=== PATIENT | male | born 1980 | race Caucasian/White ===

== ENCOUNTER 2019-04-11 14:58 | Inpatient (IN) | payer BC, SELFPAY ==
[2019-04-11] VITALS (15 sets, daily range): BP systolic 118–146; BP diastolic 88–99; PULSE 95–130; RESP 16–26; TEMP 36.7–37.4; O2SAT 97–99
--- NOTE | ~2019-04-11 | CT_ITS ---
EXAMINATION: CT BRAIN W/O DATE: 04/11/2019 20:55 INDICATION: Headache and vertigo TECHNIQUE: Computed tomography (CT) of the head was performed without intravenous contrast. The dose- length product was 681.00 mGy-cm. The mA was adjusted according to patient size. Iterative reconstruc tion technique was employed. COMPARISON: CT dated 03/23/2019 FINDINGS: Normal brain parenchymal volume for age. Normal shah-white differentiation. No acute intrac ranial hemorrhage, infarction, mass or mass effect. No ventriculomegaly or midline shift. Midline sagittal images demonstrate a normal corpus callosum, c raniovertebral junction and sella turcica. Basilar cisterns are patent. Paranasal sinuses and mastoids are pneumatized. No depressed skull fractures. IMPRESSION: 1. No acute intracranial abnormality. Reviewed, dictated and finalized at location A. SL[facility] SPECIALIST
[2019-04-11 15:29] LABS: Basophils Percent Auto 0.4 % (0.2-1.2); Eosinophils Percent Auto 0.4 % (0-4.4); Hematocrit 41.3 % (42.0-52.0); Immature Granulocyte Absolute 0.04 K/mm3 (0.00-0.031); Immature Granulocyte Percent A 0.6 % (0-0.5); Lymphocytes Absolute Auto 1.38 K/mm3 (0.9-3.2); Lymphocytes Percent Auto 19.7 % (18.3-44.2); Mean Corpuscular HGB Conc 36.3 g/dl (32-36); Mean Corpuscular Hemoglobin 32.9 pg (26-34); Mean Corpuscular Volume 90.6 fl (80-100); Mean Platelet Volume 9.4 fl (7.4-10.4); Monocytes Absolute Auto 0.6 K/mm3 (0.1-0.6); Neutrophils Percent Auto 70.9 % (45.5-73.1); Platelet Count Result 252 k/mm3 (150-375); Red Blood Count 4.56 M/mm3 (4.6-6.20); Red Cell Distribution Width 12.2 % (11.5-14.5)
[2019-04-11 15:39] LABS: Ethanol 124 mg/dL (<10)
[2019-04-11 15:40] LABS: Alanine Aminotransferase 136 U/L (4-50); Albumin Level 5.3 g/dL (3.5-5.1); Alkaline Phosphatase 103 U/L (38-126); Aspartate Amino Transferase 148 U/L (17-59); Bilirubin,Total 1.5 mg/dL (0.2-1.3); Blood Urea Nitrogen 9 mg/dL (9-20); Calcium 9.8 mg/dL (8.4-10.2); Carbon Dioxide 19 mmol/L (22-30); Chloride 89 mmol/L (98-107); Estimated CRCL calculation 129 ml/min; Estimated Glomerular Filt Rate > 60; Glucose 101 mg/dL (75-110); Potassium 3.5 mmol/L (3.4-5.0); Sodium 131 mmol/L (137-145)
[2019-04-11 15:43] LABS: Add Urine Microscopic? YES; Appearance Urine Clear (Clear); Bilirubin Urine Negative (Negative); Blood Urine Negative (Negative); Color Urine Amber (Yellow); Glucose Urine UA Negative (Negative); Hyaline Casts Urine 50+ /lpf; Ketones Urine Trace mg/dL (Negative); Leukocyte Esterase Ur Negative LEU/UL (Negative); Mucus Urine Few /lpf; Nitrate Urine Negative (Negative); Protein Urine 3+ mg/dL (Negative); Squamous Epithelial Cell Urine Rare /hpf (Few); Urobilinogen Urine Negative mg/dL (<2.0)
[2019-04-11 15:56] LABS: Amphetamine Screen Urine Negative (Negative); Barbiturate Screen Urine Negative (Negative); Benzodiazepines Screen Urine Positive (Negative); Cannabinoid Screen Urine Positive (Negative); Cocaine Screen Urine Negative (Negative); Methadone Screen Urine Negative (Negative); Opiate Screen Urine Negative (Negative); Phencyclidine Screen Urine Negative (Negative)
[2019-04-11 16:10] LABS: Thyroid Stimulating Hormone 0.739 uIU/mL (0.465-4.680)
--- NOTE | 2019-04-11 18:00 | ED.GENADULT ---
HPI - General Adult General Chief complaint: Unspecified <ELIO Gibson Last Filed: 04/11/19 20:52> Stated complaint: ALCOHOL DETOX <Milagros Ford PA-C - Last Filed: 04/11/19 20:52> Time Seen by Provider: 04/11/19 17:57 <Milagros Ford PA-C - Last Filed: 04/11/19 20:52> History of Present Illness HPI narrative: Pt was sent to ED by primary care physician for treatment of alcohol withdrawal. Pt states that is is ready to enter rehab. His last drink was at 1100 today, drink of choice is vodka and he estimates about a fifth/day. He has not been eating. He is complaining of vertigo as well, he was admitted here and evaluated by neurology 03/24, contributed to withdrawal at that time. <Milagros Ford PA-C - Last Filed: 04/11/19 20:52> Onset (ago): year(s) <ELIO Gibson Last Filed: 04/11/19 20:52> Treatments prior to arrival: none <ELIO Gibson Last Filed: 04/11/19 20:52> Related Data Home medications: Home Medications Medication Instructions Recorded Confirmed bupropion HCl 150 mg PO BID 03/01/19 03/20/19 losartan-hydrochlorothiazide 1 tablet PO DAILY 03/01/19 03/20/19 trazodone 50 mg PO HS PRN 03/01/19 03/20/19 omeprazole 40 mg capsule,delayed 40 mg PO DAILY 03/28/19 release amlodipine 04/11/19 <ELIO Gibson Last Filed: 04/11/19 20:52> Allergies/adverse reactions: Allergies Allergy/AdvReac Type Severity Reaction Status Date / Time Penicillins Allergy Unknown Rash Verified 04/11/19 18:11 <ELIO Gibson Last Filed: 04/11/19 20:52> Review of Systems Constitutional: Constitutional: Reports no additional constitutional complaints <ELIO Gibson Last Filed: 04/11/19 20:52> Eyes: Eyes: Reports no additional eye complaints <Milagros Ford PA-C - Last Filed: 04/11/19 20:52> ENT: Reports vertigo <Milagros Ford PA-C Last Filed: 04/11/19 20:52> Cardiovascular: Cardiovascular: Reports no additional cardiovascular complaints <Milagros Ford PA-C - Last Filed: 04/11/19 20:52> Respiratory: Respiratory: Reports no additional respiratory complaints <Milagros Ford PA-C Last Filed: 04/11/19 20:52> Gastrointestinal: Gastrointestinal: Reports no additional gastrointestinal complaints <Milagros Ford PA-C Last Filed: 04/11/19 20:52> Neurologic: Reports tremor(s) (both upper extremities) <Milagros Ford PA-C Last Filed: 04/11/19 20:52> Psychiatric: Psychiatric: Reports no additional psychiatric complaints <Milagros Ford PA-C Last Filed: 04/11/19 20:52> Comments: Pt states he is ready to quit drinking. <Milagros Ford PA-C Last Filed: 04/11/19 20:52> PMF Past Medical History Medical History: Medical History Eczema GERD (gastroesophageal reflux disease) H/O: HTN (hypertension) History of angina Sleep apnea Tobacco dependence Tremor of both hands <Milagros Ford PA-C Last Filed: 04/11/19 20:52> Surgical History Surgical History: Surgical History H/O adenoidectomy Hx of tonsillectomy No history of previous surgery <Milagros Ford PA-C Last Filed: 04/11/19 20:52> Family History Family History: Family History Mother Hypertension Family history of kidney disease Family history of heart disease in male family member before age 55 Family history of allergic disorder Family history of diabetes mellitus in first degree relative Family history of coronary artery disease Father Family history of malignant neoplasm of skin Family history of malignant neoplasm <Milagros Ford PA-C - Last Filed: 04/11/19 20:52> Social History Social History: Social History Smoking status: Current every day smoker Second hand tobacco smo
--- NOTE | 2019-04-11 18:12 | ECG_ITS ---
Measurements Intervals Imogene Rate: 111 P: 50 NH: 171 QRS: 15 QRSD: 77 T: 39 QT: 328 QTc: 447 Interpretive Statements SINUS TACHYCARDIA BASELINE ARTIFACT- I, II, AVR ABNORMAL ECG Electronically Signed On 04-11-2019 19:06:28 STRAIGHTENER AND ALIGNER by Humble Jackson D.O.
--- NOTE | 2019-04-11 18:37 | PC.NURSE ---
This RN called for patient's banana bag
[2019-04-11] MEDS: LORAZEPAM INJ 2 MG/ML VIAL IV PUSH (18:48)
--- NOTE | 2019-04-11 20:10 | PM.IMHP ---
H&P: HPI History of Present Illness Chief complaint: alcohol withdrawl Narrative: This is a 39 year old male who presented to the hospital with a complaint of withdrawal symptoms including anxiety, diaphoresis, tachycardia, shakiness, headache, nausea and vomiting, and dizziness. The patient was referred to the hospital today by his primary care doctor. The patient is known to me from a recent admission earlier this month for alcohol abuse. He was discharged home on a multi-vitamin and states that he felt well for the 1st few days that he was home. He describes that a friend came over and talked him into drinking again. He started out with just 1 or 2 beers and this quickly escalated to him drinking heavily once more. He did suffer a significant fall about a week ago at which time he broke his glasses and sustained head trauma. He does not remember many of the details surrounding this but mentions that since then he has had a severe pounding headache that does not seem to want to go away. He denies any hallucinations tonight. Tonight he also describes having nausea and nonbloody vomiting earlier today although he is tolerating ice chips in the ER tonight. He states that he feels very dizzy. The patient was evaluated emergency room this evening and given 2 mg of IV Ativan. The patient continues to be tachycardic with a heart rate in the 120s with visible tremors, pressured speech, diaphoretic, and anxious. He denies any chest pain, shortness of breath, fevers, chills, abdominal pain, dysuria, hematuria, diarrhea, rectal bleeding. Denies any other recent falls. The patient has verbalized to me that he wants to quit drinking. He also tells me that he realizes he should have checked himself into a detox center when he was discharged home. The patient continues to smoke about 1 pack of cigarettes daily. He also reports to me that he was started on Zoloft and Wellbutrin by his primary care doctor although he has worse anxiety since he started these. The patient denies any other significant symptoms at this time. ER provider has consulted spout liner, Dr. Holt. Review of Systems Review of Systems: All systems reviewed & are unremarkable except as noted in HPI and below PMFSH Past Medical History Medical History Eczema GERD (gastroesophageal reflux disease) H/O: HTN (hypertension) History of angina Sleep apnea Tobacco dependence Tremor of both hands Surgical History Surgical History H/O adenoidectomy Hx of tonsillectomy No history of previous surgery Family History Family History Mother Hypertension Family history of kidney disease Family history of heart disease in male family member before age 55 Family history of allergic disorder Family history of diabetes mellitus in first degree relative Family history of coronary artery disease Father Family history of malignant neoplasm of skin Family history of malignant neoplasm Social History Social History Smoking status: Never smoker Second hand tobacco smoke exposure: No Smoking end date: 03/13/15 Alcohol intake: current Drinks per week: 14 Substance use: never Gender identity (if verbalized by the patient): Male Spiritual care concerns: No Agree to blood products: Yes Meds Home Medications and Allergies Home Medications Medication Instructions Recorded Confirmed Type bupropion HCl 150 mg PO BID 03/01/19 04/11/19 History losartan-hydrochlorothiazide 1 tablet PO DAILY 03/01/19 04/11/19 History trazodone 50 mg PO HS PRN 03/01/19 04/11/19 History amlodipine 10 mg tablet 10 mg PO DAILY #90 tablet 03/15/19 04/11/19 Rx multivitamin with minerals 1 tablet PO DAILY #90 tablet 03/25/19 04/11/19 Rx [Multiple Vitamin-Minerals] omepraz
[2019-04-11 21:01] LABS: INR 0.9
[2019-04-11 21:02] LABS: Magnesium 1.8 mg/dL (1.6-2.3); Partial Thromboplastin Time 28.6 SECONDS (22.3-36.8)
[2019-04-11 21:07] LABS: Beta-Hydroxybutyrate/Acetoacetate 2.99 mmol/L (0.02-0.27)
--- NOTE | 2019-04-11 22:05 | ADMGEN ---
This patient, Scott Wen, was admitted to Intensive Care Unit-2. Patient/family oriented to hospital policies and general routines including ID bracelet, bed and alarms, visiting hours, pain management, procedures, bathroom and other care routines, personal items, smoking policy, room service/diet, and visiting hours. Valuables list has been completed. Information on how to activate the Rapid Response Team has been discussed. Patient/Family are encouraged to report perceived risks to care and to ask questions if they do not understand what they are told or what they should do.
[2019-04-12] VITALS (12 sets, daily range): BP systolic 106–129; BP diastolic 71–96; PULSE 70–82; RESP 15–26; TEMP 36.5–36.8; O2SAT 96–99
[2019-04-12] MEDS: CHLORDIAZEPOXIDE 25 MG CAPSULE PO ×2 (00:19→06:25)
[2019-04-12 00:21] LABS: Glucose Point of Care 99 (65-105)
[2019-04-12] MEDS: DEXTROSE 5%/0.9% SOD CHL 1,000 ML 100 ML IV CONT ×3 (04:24→23:14)
[2019-04-12 04:31] LABS: Basophils Percent Auto 0.6 % (0.2-1.2); Eosinophils Percent Auto 0.4 % (0-4.4); Hematocrit 35.6 % (42.0-52.0); Hemoglobin 12.9 g/dL (14.0-18.0); Immature Granulocyte Absolute 0.02 K/mm3 (0.00-0.031); Immature Granulocyte Percent A 0.4 % (0-0.5); Lymphocytes Absolute Auto 1.32 K/mm3 (0.9-3.2); Lymphocytes Percent Auto 25.5 % (18.3-44.2); Mean Corpuscular HGB Conc 36.2 g/dl (32-36); Mean Corpuscular Hemoglobin 33.2 pg (26-34); Mean Corpuscular Volume 91.5 fl (80-100); Mean Platelet Volume 9.2 fl (7.4-10.4); Monocytes Absolute Auto 0.6 K/mm3 (0.1-0.6); Neutrophils Absolute Auto 3.2 K/mm3 (1.3-6.7); Neutrophils Percent Auto 61.1 % (45.5-73.1); Platelet Count Result 150 k/mm3 (150-375); Red Blood Count 3.89 M/mm3 (4.6-6.20); White Blood Count 5.2 K/mm3 (4.5-10.0)
[2019-04-12 04:44] LABS: Magnesium 2.1 mg/dL (1.6-2.3)
[2019-04-12 04:45] LABS: Alanine Aminotransferase 108 U/L (4-50); Albumin Level 4.3 g/dL (3.5-5.1); Alkaline Phosphatase 65 U/L (38-126); Aspartate Amino Transferase 96 U/L (17-59); Bilirubin,Total 1.7 mg/dL (0.2-1.3); Blood Urea Nitrogen 13 mg/dL (9-20); Calcium 8.8 mg/dL (8.4-10.2); Carbon Dioxide 25 mmol/L (22-30); Chloride 92 mmol/L (98-107); Estimated CRCL calculation 145 ml/min; Estimated Glomerular Filt Rate > 60; Glucose 98 mg/dL (75-110); Potassium 3.5 mmol/L (3.4-5.0); Sodium 132 mmol/L (137-145)
[2019-04-12] MEDS: ACETAMINOPHEN 325 MG TABLET 650 MG PO (06:25)
[2019-04-12] MEDS: AMLODIPINE BESYLATE 5 MG TABLET 10 MG PO (08:09)
[2019-04-12] MEDS: LOSARTAN POTASSIUM 50 MG TABLET PO (08:10)
[2019-04-12] MEDS: SERTRALINE HCL 50 MG TABLET PO (08:11)
[2019-04-12] MEDS: hydroCHLOROthiazide 12.5 MG CAPSULE PO (08:11)
--- NOTE | 2019-04-12 08:14 | PM.IMPN ---
Progress Note: A&P Assessment and Plan (1) Alcohol withdrawal: Qualifiers: Complication of substance-induced condition: with unspecified complication Qualified Code(s): F10.239 - Alcohol dependence with withdrawal, unspecified Code(s): F10.239 - Alcohol dependence with withdrawal, unspecified Status: Acute Assessment and Plan: Remains in ICU on Precedex. Continue CIWA protocol. IV lorazepam available if needed. Will add oral folic acid and thiamine. Discussed with patient seriously pursuing alcohol rehab. Discussed with import coordinator and appreciate input. Telemetry reviewed on 04/12/2019 with sinus rhythm. One time dose IV Toradol being given for headache. (2) Alcoholic hepatitis: Qualifiers: Ascites presence: without ascites Qualified Code(s): K70.10 - Alcoholic hepatitis without ascites Code(s): K70.10 - Alcoholic hepatitis without ascites Status: Acute Assessment and Plan: LFTs remain elevated but improving. GI consulted and appreciate input. Result of alcohol use. Will follow. (3) Alcohol abuse: Code(s): F10.10 - Alcohol abuse, uncomplicated Status: Chronic Assessment and Plan: Chronic problem. Encouraged working on going to rehab. Folic acid and thiamine continued as noted above. Will follow LFTs. (4) Hypertension: Qualifiers: Hypertension type: essential hypertension Qualified Code(s): I10 - Essential (primary) hypertension Code(s): I10 - Essential (primary) hypertension Status: Acute Assessment and Plan: Blood pressure reviewed on 04/12/2019 and stable. Will continue to monitor on home amlodipine, losartan and HCTZ. (5) Metabolic acidosis with increased anion gap and accumulation of organic acids: Code(s): E87.2 - Acidosis Status: Acute Assessment and Plan: Now resolved. Will monitor. (6) Dehydration: Code(s): E86.0 - Dehydration Status: Acute Assessment and Plan: Improved with rehydration. IV fluids stopped. (7) Sinus tachycardia: Code(s): R00.0 - Tachycardia, unspecified Status: Acute Assessment and Plan: Secondary to alcohol withdrawal. Heart rate now controlled on review of telemetry on 04/12/2019. (8) GERD (gastroesophageal reflux disease): Qualifiers: Esophagitis presence: esophagitis presence not specified Qualified Code(s): K21.9 - Gastro-esophageal reflux disease without esophagitis Code(s): K21.9 - Gastro-esophageal reflux disease without esophagitis Status: Chronic Assessment and Plan: Continue PPI. Stable. (9) Tobacco dependence: Code(s): F17.200 - Nicotine dependence, unspecified, uncomplicated Status: Chronic Assessment and Plan: Cessation encouraged. (10) DVT prophylaxis: Code(s): Z29.9 - Encounter for prophylactic measures, unspecified Status: Acute Assessment and Plan: SCDs. Time Spent With Patient Time with patient: 15 - 25 minutes Subjective Date/time seen: 04/12/19 08:14 Interval history: Date of Service: 04/12/2019. Admitted with alcohol withdrawal. No problems overnight. Patient does report vertigo along with ?massive headache? this morning. Also notes some upset stomach with discomfort in chest that he feels is from his GERD. No shortness of breath. Does have tremor. No abdominal pain. Review of Systems Constitutional: Constitutional: Denies chills and Denies fever(s) Eyes: Eyes: Denies blurry vision ENT: Denies nasal congestion and Denies nasal discharge Cardiovascular: Cardiovascular: Denies chest pain Comments: chest discomfort from GERD Respiratory: Respiratory: Denies dyspnea Gastrointestinal: Gastrointestinal: Denies abdominal pain, Reports nausea and Denies vomiting Genitourinary: Genitourinary: Reports no additional male genitourinary complaints Musculoskeletal: Musculoskeletal: Reports no additional
--- NOTE | 2019-04-12 09:39 | WPDCNINT ---
Assessment and Plan Assessment and plan (1) Alcohol withdrawal: Qualifiers: Complication of substance-induced condition: with unspecified complication Qualified Code(s): F10.239 - Alcohol dependence with withdrawal, unspecified Code(s): F10.239 - Alcohol dependence with withdrawal, unspecified Status: Acute Assessment and Plan: patient presented with signs of alcohol withdrawal from his primary care doctor's office. patient with tachycardia, tremors, anxiety - on Precedex infusion, CIWA protocol - p.r.n. Ativan - thiamine and folic acid (2) Alcoholic hepatitis: Qualifiers: Ascites presence: without ascites Qualified Code(s): K70.10 - Alcoholic hepatitis without ascites Code(s): K70.10 - Alcoholic hepatitis without ascites Status: Acute Assessment and Plan: elevated LFTs likely related to alcohol abuse. I did discuss with the patient regarding his transaminitis which could lead to damaging his liver down the line if he did not quit degree drinking. - Patient had a right upper quadrant ultrasound on 03/21/2019 which showed hepatic steatosis (3) Alcohol abuse: Code(s): F10.10 - Alcohol abuse, uncomplicated Status: Chronic Assessment and Plan: counseled patient on cessation alcohol use will have care coordination provide patient with rehab options (4) Tobacco dependence: Code(s): F17.200 - Nicotine dependence, unspecified, uncomplicated Status: Chronic Assessment and Plan: counseled patient on cessation of tobacco use (5) Dehydration: Code(s): E86.0 - Dehydration Status: Acute Assessment and Plan: patient received adequate IV fluids, continue maintenance IV fluids - patient also has a diet ordered (6) DVT prophylaxis: Code(s): Z29.9 - Encounter for prophylactic measures, unspecified Status: Acute Assessment and Plan: SCDs Additional Plan discussed with patient updated with his condition and plan of care. I answered all questions. Patient was having some headache and requesting Toradol which was given. Code status: Full code Critical care time spent: 36 minutes Due to a high probability of clinically significant, life threatening deterioration, the patient required my highest level of preparedness to intervene emergently and I personally spent this critical care time directly and personally managing the patient. This critical care time included obtaining a history; examining the patient; pulse oximetry; ordering and review of studies; arranging urgent treatment with development of a management plan; evaluation of patient's response to treatment; frequent reassessment; and discussions with other providers. It was exclusive of separately billable procedures and treating other patients and teaching time. Please see Assessment and Plan section and the rest of the note for further information on patient assessment and treatment General Assembler Installer Consult Note Consult date: 04/12/19 Time Seen: 06:56 Reason for consult: Alcohol withdrawal, tremors, tachycardia, diaphoresis, anxiety HPI: Reason for consult: Alcohol Withdrawal, tremors HPI: Scott Wen is a 39 year old male with PMH of GERD, essential HTN,, sleep apnea, tobacco dependence, essential tremors presented to the ED with complains of alcohol withdrawal symptoms including tremors, anxiety, diaphoresis, tachycardia, headaches, nausea, vomiting, dizziness, hallucinations. Patient was recently discharged on 03/25/2019 when he was admitted for similar symptoms of alcohol withdrawal. Patient was supposed to david in an alcohol rehab program which she did not. Stated that his friend that, why and talk to him intra drinking again. He started out with 1-2 beers then quickly escalated to drinking heavily. Patient was transfer the ICU from the ER with Precedex infusion after receiving Ativan. Patient seen and examined this morning.
--- NOTE | 2019-04-12 11:50 | WPDGICN ---
Assessment and Plan Additional Plan This is a 39-year-old white male patient I am asked to see at the request of the hospitalist service. Patient admitted to the hospital with alcohol withdrawal symptoms. Patient has a several year history of heavy alcohol intake. Typically drinking vodka sometimes beer. He was hospitalized at our institution 3 weeks ago. After detoxing he went home and gradually began to drink again. He was admitted with withdrawal symptoms yesterday including anxiety, diaphoresis, tachycardia,, headache, nausea, vomiting and dizziness. He denies jaundice. He denies any specific localized abdominal pain. Past medical history is significant for GE reflux disease. Hypertension. Sleep apnea. Previous surgery includes tonsillectomy and adenoidectomy. At home medications include bupropion, losartan, hydrochlorothiazide, trazodone, amlodipine, multiple vitamins, omeprazole. He has possible allergy to penicillin. Family history is noncontributory. Physical exam reveals him to be alert. He is anicteric. Vital signs stable. He is somewhat tremulous at rest. HEENT exam unremarkable. He is anicteric. Lungs are clear to auscultation and percussion. Heart is without murmur or extra sounds. Abdominal exam is soft nontender with no hepatosplenomegaly. Laboratory testing reveals a 3 weeks ago an ultrasound of the gallbladder confirmed steatosis. Total bilirubin 1.7. AST 96. ALT 108. Alk-phos 65. Albumin 4.3. Impression 1. Alcohol-induced hepatitis. No clinical evidence for cirrhosis at this time. 2. Alcohol withdrawal. 3. History of GE reflux. Plan at the present time is for support as alcohol withdrawal progresses. Long discussion at with the patient regarding complications of alcohol-induced hepatitis. Strongly encourage alcohol rehab and detoxification. Long-term alcohol avoidance strongly encouraged. No specific medical therapy for his liver disease at this time. Would continue to monitor liver function test periodically post discharge. GI Consult Note Consult date/time: 04/12/19 11:50 HPI: Scott Wen is a 39 year old male [facility] Past Medical History Medical History (Updated 04/12/19 @ 09:51 by Marcio Holt MD) Eczema GERD (gastroesophageal reflux disease) History of angina Hypertension Sleep apnea Tobacco dependence Tremor of both hands Surgical History Surgical History H/O adenoidectomy Hx of tonsillectomy No history of previous surgery Family History Family History Mother Hypertension Family history of kidney disease Family history of heart disease in male family member before age 55 Family history of allergic disorder Family history of diabetes mellitus in first degree relative Family history of coronary artery disease Father Family history of malignant neoplasm of skin Family history of malignant neoplasm Social History Social History Smoking status: Never smoker Second hand tobacco smoke exposure: No Smoking end date: 03/13/15 Alcohol intake: current Drinks per week: 14 Substance use: never Gender identity (if verbalized by the patient): Male Spiritual care concerns: No Agree to blood products: Yes Meds Home Medications and Allergies Home Medications Medication Instructions Recorded Confirmed Type bupropion HCl 150 mg PO BID 03/01/19 04/11/19 History losartan-hydrochlorothiazide 1 tablet PO DAILY 03/01/19 04/11/19 History trazodone 50 mg PO HS PRN 03/01/19 04/11/19 History amlodipine 10 mg tablet 10 mg PO DAILY #90 tablet 03/15/19 04/11/19 Rx multivitamin with minerals 1 tablet PO DAILY #90 tablet 03/25/19 04/11/19 Rx [Multiple Vitamin-Minerals] omeprazole 40 mg capsule,delayed 40 mg PO DAILY 03/28/19 04/11/19 History release sertraline 50 mg tablet 50 mg PO DA
[2019-04-12] MEDS: KETOROLAC 15 MG/ML VIAL (*BKC) IV PUSH (11:56)
[2019-04-12] MEDS: FOLIC ACID 1 MG TABLET PO (11:57)
[2019-04-12] MEDS: THIAMINE HCL 100 MG TABLET PO (11:57)
[2019-04-12] MEDS: CHLORDIAZEPOXIDE 25 MG CAPSULE 50 MG PO ×3 (12:00→23:14)
[2019-04-12] MEDS: LORAZEPAM INJ 2 MG/ML VIAL 1 MG IV PUSH ×2 (15:20→21:33)
[2019-04-12] MEDS: TRAZODONE HCL 50 MG TABLET PO (21:33)
[2019-04-12] MEDS: PANTOPRAZOLE 40 MG TABLET PO (21:33)
[2019-04-12] MEDS: NICOTINE (*PBKC) 21 MG PATCH 1 PATCH TRANSDERM (21:33)
[2019-04-13] VITALS (13 sets, daily range): BP systolic 100–151; BP diastolic 64–111; PULSE 68–101; RESP 14–24; TEMP 36.6–36.9; O2SAT 93–100
[2019-04-13 04:56] LABS: Basophils Percent Auto 0.4 % (0.2-1.2); Eosinophils Absolute Auto 0.1 K/mm3 (0-0.3); Eosinophils Percent Auto 1.1 % (0-4.4); Hematocrit 36.1 % (42.0-52.0); Hemoglobin 12.8 g/dL (14.0-18.0); Immature Granulocyte Absolute 0.02 K/mm3 (0.00-0.031); Immature Granulocyte Percent A 0.4 % (0-0.5); Immature Platelet Fraction Pct 2.6 % (0.9-11.2); Lymphocytes Absolute Auto 1.25 K/mm3 (0.9-3.2); Lymphocytes Percent Auto 27.1 % (18.3-44.2); Mean Corpuscular HGB Conc 35.5 g/dl (32-36); Mean Corpuscular Hemoglobin 32.8 pg (26-34); Mean Corpuscular Volume 92.6 fl (80-100); Mean Platelet Volume 9.5 fl (7.4-10.4); Monocytes Absolute Auto 0.4 K/mm3 (0.1-0.6); Monocytes Percent Auto 9.5 % (2.6-8.5); Neutrophils Absolute Auto 2.8 K/mm3 (1.3-6.7); Neutrophils Percent Auto 61.5 % (45.5-73.1); Platelet Count Result 142 k/mm3 (150-375); Red Cell Distribution Width 11.9 % (11.5-14.5); White Blood Count 4.6 K/mm3 (4.5-10.0)
[2019-04-13 05:07] LABS: Alanine Aminotransferase 102 U/L (4-50); Albumin Level 4.2 g/dL (3.5-5.1); Alkaline Phosphatase 71 U/L (38-126); Aspartate Amino Transferase 96 U/L (17-59); Bilirubin,Total 1.2 mg/dL (0.2-1.3); Blood Urea Nitrogen 8 mg/dL (9-20); Calcium 8.9 mg/dL (8.4-10.2); Carbon Dioxide 23 mmol/L (22-30); Chloride 99 mmol/L (98-107); Estimated CRCL calculation 167 ml/min; Estimated Glomerular Filt Rate > 60; Glucose 131 mg/dL (75-110); Lipase 397 U/L (23-300); Magnesium 1.8 mg/dL (1.6-2.3); Phosphorus 3.2 mg/dL (2.5-4.5); Potassium 3.1 mmol/L (3.4-5.0); Sodium 134 mmol/L (137-145)
[2019-04-13 05:12] LABS: INR 0.9; Prothrombin Time 12.1 Seconds (11.1-14.7)
[2019-04-13 05:13] LABS: Partial Thromboplastin Time 26.3 SECONDS (22.3-36.8)
[2019-04-13] MEDS: CHLORDIAZEPOXIDE 25 MG CAPSULE 50 MG PO ×4 (06:42→23:18)
--- NOTE | 2019-04-13 08:12 | PM.IMPN ---
Progress Note: A&P Assessment and Plan (1) Alcohol withdrawal: Qualifiers: Complication of substance-induced condition: with unspecified complication Qualified Code(s): F10.239 - Alcohol dependence with withdrawal, unspecified Code(s): F10.239 - Alcohol dependence with withdrawal, unspecified Status: Acute Assessment and Plan: Remains in ICU on Precedex. Continue to wean Precedex. Continue CIWA protocol. IV lorazepam available if needed. Will continue oral folic acid and thiamine. Patient working on alcohol rehab facility when ready for discharge. Once able to wean off Precedex, should be able to moved from the ICU. Will continue to monitor. Will give MiraLax to help with bowel movements. Telemetry reviewed on 04/13/2019 with sinus rhythm. (2) Alcoholic hepatitis: Qualifiers: Ascites presence: without ascites Qualified Code(s): K70.10 - Alcoholic hepatitis without ascites Code(s): K70.10 - Alcoholic hepatitis without ascites Status: Acute Assessment and Plan: LFTs remain elevated but stable with AST 96 again today and ALT 102. GI consulted and appreciate input. Result of alcohol use. Will continue to monitor. (3) Alcohol abuse: Code(s): F10.10 - Alcohol abuse, uncomplicated Status: Chronic Assessment and Plan: Chronic problem. Continue folic acid and thiamine. Working on finding rehab facility to go to after discharged. (4) Anxiety: Code(s): F41.9 - Anxiety disorder, unspecified Status: Acute Assessment and Plan: Along with depression. Will hold off on any additional medication at this time. Will continue to monitor. (5) Hypertension: Qualifiers: Hypertension type: essential hypertension Qualified Code(s): I10 - Essential (primary) hypertension Code(s): I10 - Essential (primary) hypertension Status: Acute Assessment and Plan: Blood pressure reviewed on 04/13/2019 and stable. Will continue home amlodipine, losartan and HCTZ. Continue to monitor. Adjust treatment as needed. (6) Metabolic acidosis with increased anion gap and accumulation of organic acids: Code(s): E87.2 - Acidosis Status: Acute Assessment and Plan: Resolved. (7) Dehydration: Code(s): E86.0 - Dehydration Status: Acute Assessment and Plan: Resolved. Off IV fluids. (8) Sinus tachycardia: Code(s): R00.0 - Tachycardia, unspecified Status: Acute Assessment and Plan: Secondary to alcohol withdrawal. Remaining in sinus rhythm with heart rate controlled on review of telemetry as noted above. (9) GERD (gastroesophageal reflux disease): Qualifiers: Esophagitis presence: esophagitis presence not specified Qualified Code(s): K21.9 - Gastro-esophageal reflux disease without esophagitis Code(s): K21.9 - Gastro-esophageal reflux disease without esophagitis Status: Chronic Assessment and Plan: Continue PPI. Stable. (10) Tobacco dependence: Code(s): F17.200 - Nicotine dependence, unspecified, uncomplicated Status: Chronic Assessment and Plan: Cessation encouraged. (11) DVT prophylaxis: Code(s): Z29.9 - Encounter for prophylactic measures, unspecified Status: Acute Assessment and Plan: SCDs. Time Spent With Patient Time with patient: 15 - 25 minutes Subjective Date/time seen: 04/13/19 08:12 Interval history: Date of Service: 04/13/2019. Admitted with alcohol withdrawal. Patient reports feels tired today. Tremors in hands improving. Does still have a headache today. Still complains of chest and abdominal discomfort related to his acid reflux. Is feeling anxious and depressed. No shortness of breath. Was working on rehab for alcohol yesterday once he is discharged. Has been noticing vivid dreams. Would like MiraLax as he has not had bowel movement in 4 days. Review of Systems Constit
[2019-04-13] MEDS: DEXTROSE 5%/0.9% SOD CHL 1,000 ML 100 ML IV CONT ×2 (08:24→21:14)
[2019-04-13] MEDS: POTASSIUM CHLORIDE 20 MEQ TABLET 40 MEQ PO (08:24)
[2019-04-13] MEDS: polyethylene glycoL 3350 17 GM POWD.PACK PO ×2 (08:24→21:26)
[2019-04-13] MEDS: PANTOPRAZOLE 40 MG TABLET PO (08:25)
[2019-04-13] MEDS: LOSARTAN POTASSIUM 50 MG TABLET PO (08:25)
[2019-04-13] MEDS: hydroCHLOROthiazide 12.5 MG CAPSULE PO (08:25)
[2019-04-13] MEDS: AMLODIPINE BESYLATE 5 MG TABLET 10 MG PO (08:25)
[2019-04-13] MEDS: FOLIC ACID 1 MG TABLET PO (08:25)
[2019-04-13] MEDS: SERTRALINE HCL 50 MG TABLET PO (08:26)
--- NOTE | 2019-04-13 08:58 | WPDGIPROGNO ---
Progress Note: A&P Additional Plan Patient alert and comfortable this morning. He is less tremulous. Physical exam reveals abdomen to be benign. Bowel sounds are present soft nontender no organomegaly appreciated. Labs reveal CBC to be normal. Electrolytes unremarkable. Total bilirubin 1.2 AST 96, ALT 102, alk-phos 71, lipase 397. Impression 1. Alcoholic liver disease. Alcoholic hepatitis slowly improving clinically. 2. Alcohol abuse. 3. Alcohol withdrawal. Plan is for continued supportive care. Monitor LFTs conservatively at this point. Long-term alcohol abstinence and encourage. Subjective Date/time seen: 04/13/19 08:58 Objective Data Vital Signs Vital Signs: Vital Signs - 24 hr 04/12/19 10:00 04/12/19 12:00 04/12/19 14:00 Temperature 36.6 C Pulse Rate 71 73 73 Pulse Rate [Left Radial] 73 Respiratory Rate 18 Blood Pressure 114/90 Pulse Oximetry 99 04/12/19 16:00 04/12/19 18:00 04/12/19 20:00 Temperature 36.7 C 36.6 C Pulse Rate 72 82 76 Pulse Rate [Left Radial] 72 76 Respiratory Rate 18 26 H Blood Pressure 113/80 129/96 H Pulse Oximetry 98 99 04/12/19 22:00 04/13/19 00:00 04/13/19 02:00 Temperature 36.7 C Pulse Rate 78 73 72 Pulse Rate [Left Radial] 73 Respiratory Rate 15 19 Blood Pressure 127/89 124/89 Pulse Oximetry 99 99 04/13/19 04:00 04/13/19 06:00 04/13/19 07:54 Temperature 36.9 C Pulse Rate 76 71 Pulse Rate [Left Radial] 76 75 Respiratory Rate 23 H 20 Blood Pressure 149/64 H 113/89 Pulse Oximetry 93 95 Intake/Output Intake/Output: Intake & Output 04/10/19 04/11/19 04/12/19 04/13/19 23:59 23:59 23:59 23:59 Intake Total 5825 1800 Output Total 227 1900 Balance 3550 -100 Meds/Results Medications: Active Medications Generic Name Dose Route Start Last Admin Trade Name Freq PRN Reason Stop Dose Admin Acetaminophen 650 mg 04/11/19 20:08 04/12/19 06:25 Tylenol Tablet PO 650 mg Q4H PRN Administration Mild Pain (1-3) or Fever Al Hydrox/Mg Hydrox/Simethicone 30 ml 04/11/19 20:08 Mylanta PO QID PRN Dyspepsia Amlodipine Besylate 10 mg 04/12/19 09:00 04/13/19 08:25 Norvasc PO 10 mg DAILY RAYMOND Administration Bupropion HCl 150 mg 04/12/19 00:50 04/13/19 08:24 Wellbutrin-Sr (12 Hr) PO 150 mg Q12HR RAYMOND Administration Chlordiazepoxide HCl 50 mg 04/12/19 07:18 04/13/19 06:42 Librium Po PO 50 mg Q6HR RAYMOND Administration Folic Acid 1 mg 04/12/19 09:00 04/13/19 08:25 Folic Acid PO 1 mg DAILY RAYMOND Administration Hydrochlorothiazide 12.5 mg 04/12/19 09:00 04/13/19 08:25 Hydrochlorothiazide PO 12.5 mg QAM RAYMOND Administration Dexmedetomidine HCl 400 mcg in 100 mls @ 7.448 mls/hr 04/11/19 20:20 04/13/19 08:22 Precedex 400 Mcg/D5w 100 Ml IV CONT 0.3 mcg/kg/hr .[id number] RAYMOND 7.4 mls/hr Administration 0.3 MCG/KG/HR Dextrose/Sodium Chloride 1,000 mls @ 100 mls/hr 04/12/19 02:20 04/13/19 08:24 Dextrose 5% Sodium Chloride 0.9% IV CONT 100 mls/hr .Q10H RAYMOND Administration Lorazepam 1 mg 04/11/19 20:07 04/12/19 21:33 Ativan Inj IV PUSH 1 mg Q4H PRN Administration Withdrawal Losartan Potassium 50 mg 04/12/19 09:00 04/13/19 08:25 Cozaar PO 50 mg QAM RAYMOND Administration Nicotine 1 patch 04/12/19 21:00 04/12/19 21:33 Nicoderm Cq 21 Mg TRANSDERM 1 patch DAILY@2100 RAYMOND Administration Ondansetron HCl 4 mg 04/13/19 08:32 Zofran Odt PO Q6H PRN Nausea And Vomiting Pantoprazole Sodium 40 mg 04/12/19 19:25 04/13/19 08:25 Protonix PO 40 mg DAILY RAYMOND Administration Polyethylene Glycol 17 gm 04/13/19 08:12 02/01/20 08:24 Miralax PO 17 gm QAM PRN Administration Constipation Sertraline HCl 50 mg 04/12/19 09:00 04/13/19 08:26 Zoloft PO 50 mg DAILY RAYMOND Administration Thiamine HCl 100 mg 04/12/19 09:00 04/12/19 11:57 Vitamin B-1 PO 100 mg QAM S
[2019-04-13] MEDS: ONDANSETRON HCL ODT 4 MG TABLET PO (09:18)
--- NOTE | 2019-04-13 09:22 | WPDINTPN ---
Progress Note: A&P Assessment and Plan (1) Alcohol withdrawal: Qualifiers: Complication of substance-induced condition: with unspecified complication Qualified Code(s): F10.239 - Alcohol dependence with withdrawal, unspecified Code(s): F10.239 - Alcohol dependence with withdrawal, unspecified Status: Acute Assessment and Plan: patient presented with signs of alcohol withdrawal from his primary care doctor's office. patient with tachycardia, tremors, anxiety - on Precedex infusion, CIWA protocol - p.r.n. Ativan - thiamine and folic acid - continue Librium (2) Alcoholic hepatitis: Qualifiers: Ascites presence: without ascites Qualified Code(s): K70.10 - Alcoholic hepatitis without ascites Code(s): K70.10 - Alcoholic hepatitis without ascites Status: Acute Assessment and Plan: elevated LFTs likely related to alcohol abuse. I did discuss with the patient regarding his transaminitis which could lead to damaging his liver down the line if he did not quit degree drinking. - Patient had a right upper quadrant ultrasound on 03/21/2019 which showed hepatic steatosis - appreciate GI evaluation and recommendations, continue supportive care for now and monitor LFTs. (3) Alcohol abuse: Code(s): F10.10 - Alcohol abuse, uncomplicated Status: Chronic Assessment and Plan: counseled patient on cessation alcohol. Care coordination has provided the patient with multiple alcohol rehab options (4) Tobacco dependence: Code(s): F17.200 - Nicotine dependence, unspecified, uncomplicated Status: Chronic Assessment and Plan: counseled patient on cessation of tobacco use (5) Dehydration: Code(s): E86.0 - Dehydration Status: Acute Assessment and Plan: resolved, patient received adequate IV fluids, continue maintenance IV fluids - patient also has a diet ordered - will decrease maintenance IV fluids and will discontinue once patient starts taking adequate oral diet (6) DVT prophylaxis: Code(s): Z29.9 - Encounter for prophylactic measures, unspecified Status: Acute Assessment and Plan: SCDs Additional Plan discussed with patient updated with his condition and plan of care. I answered all questions. patient has been provided with multiple alcohol rehab options by care coordination Code status: Full code Critical care time spent: 32 minutes Due to a high probability of clinically significant, life threatening deterioration, the patient required my highest level of preparedness to intervene emergently and I personally spent this critical care time directly and personally managing the patient. This critical care time included obtaining a history; examining the patient; pulse oximetry; ordering and review of studies; arranging urgent treatment with development of a management plan; evaluation of patient's response to treatment; frequent reassessment; and discussions with other providers. It was exclusive of separately billable procedures and treating other patients and teaching time. Please see Assessment and Plan section and the rest of the note for further information on patient assessment and treatment Subjective Date/time seen: 04/13/19 09:22 Reason for consult: Alcohol withdrawal, tremors, tachycardia, diaphoresis, anxiety 04/13/2019: Pt seen and examined. Is awake, alert, oriented. Denies any chest pain, shortness of breath, abdominal pain, nausea, vomiting, headache. Patient states he does not have an appetite. Remains on Precedex infusion at 0.4 mcg. Patient is anxious as he has been given multiple resources for rehab Center scan of confused. Patient did require some Ativan overnight. Patient otherwise calm and appropriate. Patient is hemodynamically stable, good O2 sats on room air, adequate urine output. Patient complains of tremors of the hands, which have improved, no hallucinations
[2019-04-13] MEDS: THIAMINE HCL 100 MG TABLET PO (09:53)
[2019-04-13] MEDS: LORAZEPAM INJ 2 MG/ML VIAL 1 MG IV PUSH ×3 (09:54→16:24)
[2019-04-13] MEDS: MAG HYDROX/AL HYDROX/SIMETH 30 ML UDC PO (13:20)
[2019-04-13 13:54] LABS: Glucose Point of Care 109 (65-105)
[2019-04-13] MEDS: NICOTINE (*PBKC) 21 MG PATCH 1 PATCH TRANSDERM (21:07)
[2019-04-13] MEDS: TRAZODONE HCL 50 MG TABLET PO (23:20)
[2019-04-14] VITALS (11 sets, daily range): BP systolic 127–142; BP diastolic 95–108; PULSE 67–88; RESP 16–19; TEMP 36.5–37.1; O2SAT 96–100
[2019-04-14 04:01] LABS: Basophils Percent Auto 0.7 % (0.2-1.2); Eosinophils Absolute Auto 0.2 K/mm3 (0-0.3); Eosinophils Percent Auto 2.5 % (0-4.4); Hematocrit 37.2 % (42.0-52.0); Hemoglobin 13.2 g/dL (14.0-18.0); Immature Granulocyte Absolute 0.03 K/mm3 (0.00-0.031); Immature Granulocyte Percent A 0.5 % (0-0.5); Lymphocytes Absolute Auto 1.64 K/mm3 (0.9-3.2); Lymphocytes Percent Auto 27.8 % (18.3-44.2); Mean Corpuscular HGB Conc 35.5 g/dl (32-36); Mean Corpuscular Hemoglobin 33.5 pg (26-34); Mean Corpuscular Volume 94.4 fl (80-100); Mean Platelet Volume 9.7 fl (7.4-10.4); Monocytes Absolute Auto 0.6 K/mm3 (0.1-0.6); Monocytes Percent Auto 10.8 % (2.6-8.5); Neutrophils Absolute Auto 3.4 K/mm3 (1.3-6.7); Neutrophils Percent Auto 57.7 % (45.5-73.1); Platelet Count Result 148 k/mm3 (150-375); Red Blood Count 3.94 M/mm3 (4.6-6.20); Red Cell Distribution Width 12.2 % (11.5-14.5); White Blood Count 5.9 K/mm3 (4.5-10.0)
[2019-04-14 04:20] LABS: Alanine Aminotransferase 99 U/L (4-50); Alkaline Phosphatase 67 U/L (38-126); Aspartate Amino Transferase 90 U/L (17-59); Bilirubin,Total 1.1 mg/dL (0.2-1.3); Blood Urea Nitrogen 8 mg/dL (9-20); Calcium 8.7 mg/dL (8.4-10.2); Carbon Dioxide 22 mmol/L (22-30); Chloride 102 mmol/L (98-107); Estimated CRCL calculation 143 ml/min; Estimated Glomerular Filt Rate > 60; Glucose 118 mg/dL (75-110); Magnesium 1.8 mg/dL (1.6-2.3); Phosphorus 3.3 mg/dL (2.5-4.5); Potassium 3.3 mmol/L (3.4-5.0); Sodium 136 mmol/L (137-145)
[2019-04-14] MEDS: CHLORDIAZEPOXIDE 25 MG CAPSULE 50 MG PO ×3 (05:02→17:24)
[2019-04-14] MEDS: AMLODIPINE BESYLATE 5 MG TABLET 10 MG PO (05:08)
[2019-04-14] MEDS: LORAZEPAM INJ 2 MG/ML VIAL 1 MG IV PUSH ×2 (06:13→21:29)
[2019-04-14] MEDS: hydroCHLOROthiazide 12.5 MG CAPSULE PO (06:13)
[2019-04-14] MEDS: LOSARTAN POTASSIUM 50 MG TABLET PO (06:13)
[2019-04-14] MEDS: POTASSIUM CHLORIDE 20 MEQ TABLET 40 MEQ PO (08:30)
[2019-04-14] MEDS: FOLIC ACID 1 MG TABLET PO (08:31)
[2019-04-14] MEDS: polyethylene glycoL 3350 17 GM POWD.PACK PO ×2 (08:31→17:24)
[2019-04-14] MEDS: SERTRALINE HCL 50 MG TABLET PO (08:31)
[2019-04-14] MEDS: THIAMINE HCL 100 MG TABLET PO (08:31)
[2019-04-14] MEDS: PANTOPRAZOLE 40 MG TABLET PO (08:31)
[2019-04-14] MEDS: ALPRAZOLAM 0.25 MG TABLET PO ×3 (08:36→17:24)
--- NOTE | 2019-04-14 09:00 | PM.IMPN ---
Progress Note: A&P Assessment and Plan (1) Alcohol withdrawal: Qualifiers: Complication of substance-induced condition: with unspecified complication Qualified Code(s): F10.239 - Alcohol dependence with withdrawal, unspecified Code(s): F10.239 - Alcohol dependence with withdrawal, unspecified Status: Acute Assessment and Plan: Remains in ICU. Now off Precedex. Continue CIWA protocol. IV lorazepam ermains available if needed. On scheduled Librium but may be able to start weaning with addition of alprazolam as noted below. Will continue oral folic acid and thiamine. Patient working on alcohol rehab facility when ready for discharge. Telemetry reviewed on 04/14/2019 with sinus rhythm. Discussed with dressage instructor. Will transfer to medical floor as stable. (2) Alcoholic hepatitis: Qualifiers: Ascites presence: without ascites Qualified Code(s): K70.10 - Alcoholic hepatitis without ascites Code(s): K70.10 - Alcoholic hepatitis without ascites Status: Acute Assessment and Plan: LFTs remain elevated but stable with AST 90 and ALT 99 today. GI consulted and appreciate input. Result of alcohol use. Will continue to monitor. (3) Alcohol abuse: Code(s): F10.10 - Alcohol abuse, uncomplicated Status: Chronic Assessment and Plan: Chronic problem. Continue folic acid and thiamine. Patient working on finding rehab facility to go to after discharged. (4) Anxiety: Code(s): F41.9 - Anxiety disorder, unspecified Status: Acute Assessment and Plan: Along with depression. Discussed with dressage instructor. And bupropion. Already on scheduled Librium but low-dose scheduled alprazolam added. Will continue to monitor and adjust treatment as needed. (5) Hypokalemia: Code(s): E87.6 - Hypokalemia Status: Acute Assessment and Plan: Potassium 3.3 today with oral replacement given. Will continue to monitor and replace as needed. (6) Hypertension: Qualifiers: Hypertension type: essential hypertension Qualified Code(s): I10 - Essential (primary) hypertension Code(s): I10 - Essential (primary) hypertension Status: Acute Assessment and Plan: Blood pressure reviewed on 04/14/2019. Blood pressure elevated this morning before medications. Will continue home amlodipine, losartan and HCTZ for now but adjust as needed. Anxiety may be adding to elevation. (7) GERD (gastroesophageal reflux disease): Qualifiers: Esophagitis presence: esophagitis presence not specified Qualified Code(s): K21.9 - Gastro-esophageal reflux disease without esophagitis Code(s): K21.9 - Gastro-esophageal reflux disease without esophagitis Status: Chronic Assessment and Plan: Remains stable. Continue PPI. (8) Metabolic acidosis with increased anion gap and accumulation of organic acids: Code(s): E87.2 - Acidosis Status: Acute Assessment and Plan: Resolved. (9) Dehydration: Code(s): E86.0 - Dehydration Status: Acute Assessment and Plan: Resolved. Off IV fluids. (10) Sinus tachycardia: Code(s): R00.0 - Tachycardia, unspecified Status: Acute Assessment and Plan: Secondary to alcohol withdrawal. Resolved. (11) Tobacco dependence: Code(s): F17.200 - Nicotine dependence, unspecified, uncomplicated Status: Chronic Assessment and Plan: Cessation encouraged. (12) DVT prophylaxis: Code(s): Z29.9 - Encounter for prophylactic measures, unspecified Status: Acute Assessment and Plan: SCDs. Time Spent With Patient Time with patient: 15 - 25 minutes Subjective Date/time seen: 04/14/19 09:00 Interval history: Date of Service: 04/14/2019. Admitted with alcohol withdrawal. Had increased problems with anxiety yesterday after noon. Had been off Precedex but had to return Precedex. Required IV Ativan yeseter
--- NOTE | 2019-04-14 10:23 | PC.NURSE ---
Pt transferred to room 332 via W/C, belongings sent with pt. Report given to ALEXEY Luevano.
[2019-04-14] MEDS: DEXTROSE 5%/0.9% SOD CHL 1,000 ML 75 ML IV CONT (10:40)
--- NOTE | 2019-04-14 10:53 | PC.NURSE ---
Patient received from ICU2 at 1019
[2019-04-14 12:15] LABS: Glucose Point of Care 101 (65-105)
--- NOTE | 2019-04-14 12:27 | WPDINTPN ---
Progress Note: A&P Assessment and Plan (1) Alcohol withdrawal: Qualifiers: Complication of substance-induced condition: with unspecified complication Qualified Code(s): F10.239 - Alcohol dependence with withdrawal, unspecified Code(s): F10.239 - Alcohol dependence with withdrawal, unspecified Status: Acute Assessment and Plan: patient presented with signs of alcohol withdrawal from his primary care doctor's office. patient with tachycardia, tremors, anxiety - OFF Precedex infusion, CIWA protocol - p.r.n. Ativan - thiamine and folic acid - continue Librium - will start patient on small dose of scheduled Xanax as he is anxious regarding his alcohol rehab and is getting overwhelmed and deciding to select one of the rehab places (2) Alcoholic hepatitis: Qualifiers: Ascites presence: without ascites Qualified Code(s): K70.10 - Alcoholic hepatitis without ascites Code(s): K70.10 - Alcoholic hepatitis without ascites Status: Acute Assessment and Plan: elevated LFTs likely related to alcohol abuse. I did discuss with the patient regarding his transaminitis which could lead to damaging his liver down the line if he did not quit degree drinking. - LFTs trending down - Patient had a right upper quadrant ultrasound on 03/21/2019 which showed hepatic steatosis - appreciate GI evaluation and recommendations, continue supportive care for now and monitor LFTs. (3) Alcohol abuse: Code(s): F10.10 - Alcohol abuse, uncomplicated Status: Chronic Assessment and Plan: counseled patient on cessation alcohol. Care coordination has provided the patient with multiple alcohol rehab options (4) Tobacco dependence: Code(s): F17.200 - Nicotine dependence, unspecified, uncomplicated Status: Chronic Assessment and Plan: counseled patient on cessation of tobacco use (5) Dehydration: Code(s): E86.0 - Dehydration Status: Acute Assessment and Plan: resolved, patient received adequate IV fluids, continue maintenance IV fluids - patient also has a diet ordered - will decrease maintenance IV fluids and will discontinue once patient starts taking adequate oral diet (6) DVT prophylaxis: Code(s): Z29.9 - Encounter for prophylactic measures, unspecified Status: Acute Assessment and Plan: SCDs Additional Plan discussed with patient updated with his condition and plan of care. I answered all questions. patient has been provided with multiple alcohol rehab options by care coordination Code status: Full code Critical care time spent: 31 minutes Due to a high probability of clinically significant, life threatening deterioration, the patient required my highest level of preparedness to intervene emergently and I personally spent this critical care time directly and personally managing the patient. This critical care time included obtaining a history; examining the patient; pulse oximetry; ordering and review of studies; arranging urgent treatment with development of a management plan; evaluation of patient's response to treatment; frequent reassessment; and discussions with other providers. It was exclusive of separately billable procedures and treating other patients and teaching time. Please see Assessment and Plan section and the rest of the note for further information on patient assessment and treatment Subjective Date/time seen: 04/14/19 12:27 Reason for consult: Alcohol withdrawal, tremors, tachycardia, diaphoresis, anxiety 04/14/2019: Pt seen and examined. Is awake, alert, oriented. Denies any chest pain, shortness of breath, abdominal pain, nausea, vomiting, headache. Patient states he does not have an appetite. OFF Precedex infusion. Patient states he feels much better, tremors of the hands have almost resolved, no hallucinations. Patient is hemodynamically stable, adequate urine output and david
[2019-04-14] MEDS: NICOTINE (*PBKC) 21 MG PATCH 1 PATCH TRANSDERM (21:23)
[2019-04-14] MEDS: TRAZODONE HCL 50 MG TABLET PO (21:24)
[2019-04-15] VITALS: PULSE 84
[2019-04-15] MEDS: CHLORDIAZEPOXIDE 25 MG CAPSULE 50 MG PO ×3 (00:26→12:43)
[2019-04-15 06:00] VITALS: BP 134/106; PULSE 68; RESP 16; TEMP 36.6; O2SAT 99
[2019-04-15 06:51] LABS: Alanine Aminotransferase 134 U/L (4-50); Albumin Level 4.3 g/dL (3.5-5.1); Alkaline Phosphatase 61 U/L (38-126); Aspartate Amino Transferase 118 U/L (17-59); Bilirubin,Total 1.3 mg/dL (0.2-1.3); Blood Urea Nitrogen 10 mg/dL (9-20); Calcium 8.8 mg/dL (8.4-10.2); Carbon Dioxide 21 mmol/L (22-30); Chloride 99 mmol/L (98-107); Estimated CRCL calculation 144 ml/min; Estimated Glomerular Filt Rate > 60; Glucose 99 mg/dL (75-110); Potassium 3.5 mmol/L (3.4-5.0); Sodium 135 mmol/L (137-145)
[2019-04-15 08:00] VITALS: PULSE 84
[2019-04-15] MEDS: polyethylene glycoL 3350 17 GM POWD.PACK PO (08:20)
[2019-04-15] MEDS: PANTOPRAZOLE 40 MG TABLET PO (08:20)
[2019-04-15] MEDS: LOSARTAN POTASSIUM 50 MG TABLET PO ×2 (08:20→13:52)
[2019-04-15] MEDS: SERTRALINE HCL 50 MG TABLET PO (08:20)
[2019-04-15] MEDS: hydroCHLOROthiazide 12.5 MG CAPSULE PO (08:20)
[2019-04-15] MEDS: FOLIC ACID 1 MG TABLET PO (08:20)
[2019-04-15] MEDS: THIAMINE HCL 100 MG TABLET PO (08:20)
[2019-04-15] MEDS: ALPRAZOLAM 0.25 MG TABLET PO ×2 (08:21→12:43)
[2019-04-15] MEDS: AMLODIPINE BESYLATE 5 MG TABLET 10 MG PO (08:21)
[2019-04-15] MEDS: hydrALAZINE HCL 20 MG/ML VIAL 10 MG IV PUSH (08:21)
--- NOTE | 2019-04-15 09:21 | WPDGIPROGNO ---
Progress Note: A&P Additional Plan Patient more comfortable this morning. Less tremulous. He is tolerating diet without difficulty. He denies abdominal pain. Physical exam reveals him to be alert. Vital signs stable. He is anicteric. Lungs are clear to auscultation and percussion abdomen is soft nontender no significant organomegaly appreciated. Laboratory testing reveals total bilirubin 1.3. AST 118. ALT 134. Alk-phos 61. Impression 1. Alcohol Abuse. 2. Alcohol-induced hepatitis. Plan is for continued abstinence from alcohol. Would advise follow-up liver function test be performed over the next several months. Okay with me for discharge from hospital. Subjective Date/time seen: 04/15/19 09:21 Objective Data Vital Signs Vital Signs: Vital Signs - 24 hr 04/14/19 10:20 04/14/19 12:00 04/14/19 14:00 Temperature 37.1 C 37.1 C Pulse Rate 88 84 Pulse Rate [Right Radial] 84 Respiratory Rate 16 16 Blood Pressure 141/97 H 139/100 H Pulse Oximetry 99 100 04/14/19 20:00 04/14/19 21:47 04/15/19 00:00 Temperature 36.7 C Pulse Rate 79 Pulse Rate [Right Radial] 84 84 Respiratory Rate 16 Blood Pressure 140/100 H Pulse Oximetry 99 04/15/19 06:00 Temperature 36.6 C Pulse Rate 68 Pulse Rate [Right Radial] Respiratory Rate 16 Blood Pressure 134/106 H Pulse Oximetry 99 Intake/Output Intake/Output: Intake & Output 04/12/19 04/13/19 04/14/19 04/15/19 23:59 23:59 23:59 23:59 Intake Total 5825 3680 2650 550 Output Total 2275 3000 800 Balance 3550 680 1850 550 Meds/Results Medications: Active Medications Generic Name Dose Route Start Last Admin Trade Name Freq PRN Reason Stop Dose Admin Acetaminophen 650 mg 04/11/19 20:08 04/12/19 06:25 Tylenol Tablet PO 650 mg Q4H PRN Administration Mild Pain (1-3) or Fever Al Hydrox/Mg Hydrox/Simethicone 30 ml 04/11/19 20:08 04/13/19 13:20 Mylanta PO 30 ml QID PRN Administration Dyspepsia Alprazolam 0.25 mg 04/14/19 09:00 04/15/19 08:21 Xanax PO 0.25 mg TID RAYMOND Administration Amlodipine Besylate 10 mg 04/12/19 09:00 04/15/19 08:21 Norvasc PO 10 mg DAILY RAYMOND Administration Bisacodyl 10 mg 04/13/19 18:21 Dulcolax Suppository RECTAL DAILY PRN Constipation Bupropion HCl 150 mg 04/12/19 00:50 04/15/19 08:21 Wellbutrin-Sr (12 Hr) PO 150 mg Q12HR RAYMOND Administration Chlordiazepoxide HCl 50 mg 04/12/19 07:18 04/15/19 05:47 Librium Po PO 50 mg Q6HR RAYMOND Administration Folic Acid 1 mg 04/12/19 09:00 04/15/19 08:20 Folic Acid PO 1 mg DAILY RAYMOND Administration Hydrochlorothiazide 12.5 mg 04/12/19 09:00 04/15/19 08:20 Hydrochlorothiazide PO 12.5 mg QAM RAYMOND Administration Lorazepam 1 mg 04/11/19 20:07 04/14/19 21:29 Ativan Inj IV PUSH 1 mg Q4H PRN Administration Withdrawal Losartan Potassium 50 mg 04/12/19 09:00 04/15/19 08:20 Cozaar PO 50 mg QAM RAYMOND Administration Nicotine 1 patch 04/12/19 21:00 04/14/19 21:23 Nicoderm Cq 21 Mg TRANSDERM 1 patch DAILY@2100 RAYMOND Administration Ondansetron HCl 4 mg 04/13/19 08:32 04/13/19 09:18 Zofran Odt PO 4 mg Q6H PRN Administration Nausea And Vomiting Pantoprazole Sodium 40 mg 04/12/19 19:25 04/15/19 08:20 Protonix PO 40 mg DAILY RAYMOND Administration Polyethylene Glycol 17 gm 04/14/19 09:00 04/15/19 08:20 Miralax PO 17 gm BID RAYMOND Administration Sertraline HCl 50 mg 04/12/19 09:00 04/15/19 08:20 Zoloft PO 50 mg DAILY RAYMOND Administration Thiamine HCl 100 mg 04/12/19 09:00 04/15/19 08:20 Vitamin B-1 PO 100 mg QAM RAYMOND Administration Trazodone HCl 50 mg 04/12/19 20:44 04/14/19 21:24 Desyrel PO 50 mg HS PRN Administration Insomnia Radiology Results: ITS Impressions Head CT 04/11/19 21:00 IMPRESSION: 1. No acute intracranial abnormality. Labs Labs: Laboratory Res
[2019-04-15 10:41] VITALS: BP 136/99
--- NOTE | 2019-04-15 11:47 | PM.IMPN ---
Progress Note: A&P Assessment and Plan (1) Alcohol withdrawal: Qualifiers: Complication of substance-induced condition: with unspecified complication Qualified Code(s): F10.239 - Alcohol dependence with withdrawal, unspecified Code(s): F10.239 - Alcohol dependence with withdrawal, unspecified Status: Acute Assessment and Plan: Transferred to medical floor yesterday. Now appears stable. Discussed with patient sitting home on tapering Librium. Continue folic acid thiamine. Patient continuing to work on placement at alcohol rehab facility with several good options. Does have with psychiatrist this week. Will discharge home today. (2) Alcoholic hepatitis: Qualifiers: Ascites presence: without ascites Qualified Code(s): K70.10 - Alcoholic hepatitis without ascites Code(s): K70.10 - Alcoholic hepatitis without ascites Status: Acute Assessment and Plan: LFTs remain elevated but stable with AST 118 and ALT 134. GI consulted and appreciate input. Result of alcohol use. Follow as outpatient. (3) Alcohol abuse: Code(s): F10.10 - Alcohol abuse, uncomplicated Status: Chronic Assessment and Plan: Chronic problem. Continue folic acid and thiamine. Patient working on finding rehab facility to go to after discharged. (4) Anxiety: Code(s): F41.9 - Anxiety disorder, unspecified Status: Acute Assessment and Plan: Along with depression. Continue sertraline and bupropion. Has been on scheduled alprazolam since yesterday but will not continue at discharge. Will follow-up with psychiatrist after discharge. (5) Hypertension: Qualifiers: Hypertension type: essential hypertension Qualified Code(s): I10 - Essential (primary) hypertension Code(s): I10 - Essential (primary) hypertension Status: Acute Assessment and Plan: Blood pressure reviewed on 04/15/2019. Blood pressure still some elevation. Will increase losartan. Continue current amlodipine and HCTZ. Will need to follow-up with primary physician after discharge. (6) Hypokalemia: Code(s): E87.6 - Hypokalemia Status: Acute Assessment and Plan: Resolved. Potassium 3.5 today. (7) GERD (gastroesophageal reflux disease): Qualifiers: Esophagitis presence: esophagitis presence not specified Qualified Code(s): K21.9 - Gastro-esophageal reflux disease without esophagitis Code(s): K21.9 - Gastro-esophageal reflux disease without esophagitis Status: Chronic Assessment and Plan: Stable. Continue PPI. (8) Metabolic acidosis with increased anion gap and accumulation of organic acids: Code(s): E87.2 - Acidosis Status: Acute Assessment and Plan: Resolved. (9) Dehydration: Code(s): E86.0 - Dehydration Status: Acute Assessment and Plan: Resolved. Off IV fluids. (10) Sinus tachycardia: Code(s): R00.0 - Tachycardia, unspecified Status: Acute Assessment and Plan: Secondary to alcohol withdrawal. Resolved. (11) Tobacco dependence: Code(s): F17.200 - Nicotine dependence, unspecified, uncomplicated Status: Chronic Assessment and Plan: Cessation encouraged. (12) DVT prophylaxis: Code(s): Z29.9 - Encounter for prophylactic measures, unspecified Status: Acute Assessment and Plan: SCDs. Time Spent With Patient Time with patient: 15 - 25 minutes Subjective Date/time seen: 04/15/19 11:47 Interval history: Date of Service: 04/15/2019. Admitted with alcohol withdrawal. Transfer to medical yesterday. Feeling better today. Hoping to go home. Tremor back at baseline. No chest pain. Shortness of breath further. Has been having bowel movements. Review of Systems Review of Systems: Narrative: Feeling better. Wants to go home. Constitutional: Constitutional: Denies chills and Denies fever(s) ENT: Denies rachel
[2019-04-15 12:00] VITALS: PULSE 76
--- NOTE | 2019-04-15 19:39 | PM.DS ---
DS: Diagnosis Admitting Diagnosis Admitting Diagnosis: Alcohol dependence with withdrawal, unspecified Discharge Diagnosis (1) Alcohol withdrawal: Qualifiers: Complication of substance-induced condition: with unspecified complication Qualified Code(s): F10.239 - Alcohol dependence with withdrawal, unspecified Code(s): F10.239 - Alcohol dependence with withdrawal, unspecified Status: Acute (2) Alcoholic hepatitis: Qualifiers: Ascites presence: without ascites Qualified Code(s): K70.10 - Alcoholic hepatitis without ascites Code(s): K70.10 - Alcoholic hepatitis without ascites Status: Acute (3) Alcohol abuse: Code(s): F10.10 - Alcohol abuse, uncomplicated Status: Chronic (4) Anxiety: Code(s): F41.9 - Anxiety disorder, unspecified Status: Acute (5) Hypertension: Qualifiers: Hypertension type: essential hypertension Qualified Code(s): I10 - Essential (primary) hypertension Code(s): I10 - Essential (primary) hypertension Status: Acute (6) Hypokalemia: Code(s): E87.6 - Hypokalemia Status: Acute (7) GERD (gastroesophageal reflux disease): Qualifiers: Esophagitis presence: esophagitis presence not specified Qualified Code(s): K21.9 - Gastro-esophageal reflux disease without esophagitis Code(s): K21.9 - Gastro-esophageal reflux disease without esophagitis Status: Chronic (8) Metabolic acidosis with increased anion gap and accumulation of organic acids: Code(s): E87.2 - Acidosis Status: Acute (9) Dehydration: Code(s): E86.0 - Dehydration Status: Acute (10) Sinus tachycardia: Code(s): R00.0 - Tachycardia, unspecified Status: Acute (11) Tobacco dependence: Code(s): F17.200 - Nicotine dependence, unspecified, uncomplicated Status: Chronic DS: Summary Hospital Course Reason for hospitalization: Alcohol withdrawal symptoms. Hospital Course: Date of Service of Discharge: April 15, 2019. History of Present Illness: Patient is a 39-year-old with known alcohol abuse and previous alcohol withdrawal present to the emergency room complaint of withdrawal symptoms including anxiety, diaphoresis, tachycardia, shakiness, headache, nausea, vomiting and dizziness. Patient was referred to the hospital by his primary care physician. Patient was admitted earlier in March due to his alcohol abuse. He was discharged home on multivitamin. He reports he states he did well for the 1st few days. After that time, friend came over talked him into drinking again. He initially started with just 1 or 2 beers quickly escalating to drinking more heavily. He did suffer a significant fall about 1 week prior to presentation breaking his glasses and sustaining head trauma. He does not recall many of the details surrounding the event but mentions he did have a severe pounding headache that did not want to go away. No hallucinations. He does report having nausea and nonbloody vomiting earlier in the day. Does report feeling dizziness. In the emergency room, he was given 2 mg of IV Ativan. He was noticeably tachycardic with visible tremors, pressured speech, diaphoretic and anxious. No chest pain or shortness of breath. No fever chills. No abdominal pain. With obvious signs of withdrawal, he was admitted for further evaluation and treatment. Course in Hospital: Admitted to the ICU and started on IV Precedex drip along with IV Ativan as needed. He was given oral folic acid and thiamine. Patient did slowly but steadily improve from his alcohol withdrawal with decreasing heart rate. No further diaphoresis after admission. He did continue to have issues with anxiety resulting in patient being discontinued from Precedex drip and restarted on a few occasions. He was started on IV fluids with his admission to help with the tachycardia as well as dehydration. He was also no
== END 2019-04-15 22:16 | disposition home or self-care (01) | DRG 897 ==
LOC: ANHED 20:22 → ANHICU 04-12 08:29 → ANH3MEDSUR 04-14 13:57 → ANHICU 04-18 09:18
PROVIDERS: Emergency Medicine; Hospitalist; Internal Medicine; Admitting Provider Family Medicine; Emergency Provider Emergency Medicine; PCP Family Medicine; Visit Provider Family Medicine
DX: F10.239 Alcohol dependence with withdrawal, unspecified (principal); E87.2 Acidosis; K70.10 Alcoholic hepatitis without ascites; F41.9 Anxiety disorder, unspecified; I10 Essential (primary) hypertension; E87.6 Hypokalemia; K21.9 Gastro-esophageal reflux disease without esophagitis; E86.0 Dehydration; R00.0 Tachycardia, unspecified; L30.9 Dermatitis, unspecified; G47.30 Sleep apnea, unspecified; F17.200 Nicotine dependence, unspecified, uncomplicated
CPT/HCPCS: 36415; 70450; 80053; 80307; 81001; 82010; 82248; 83690; 83735; 84100; 84443; 85025; 85055; 85610; 85730; 87081; 87086; 93005; 96365; 96366; 96375; 99285; A9270; J0360; J1885; J2060; J3411; J3475; J7030; J7042

== ENCOUNTER 2019-07-28 18:35 | Emergency (ER) | payer BC, SELFPAY ==
--- NOTE | ~2019-07-28 | CT_ITS ---
EXAMINATION: CT abdomen pelvis w con INDICATION: Right upper quadrant pain TECHNIQUE: Computed tomographic images of the abdomen and pelvis were obtained after the administrati on of 100 cc of Omnipaque 350 intravenous contrast. The dose-length product (DLP) was 620.43 mGy-cm. Automated exposure control and iterative reconstruction technique were employed. COMPARISON: None available FINDINGS: The lung bases are clear. The heart size is normal. The liver is diffusely low in attenuati on when compared with the spleen, consistent with hepatic steatosis. The spleen, pancreas, gallbladde r, and adrenal glands are normal. The kidneys are unremarkable. There are phleboliths in the nondilat ed appendix. No pathologically enlarged abdominal or pelvic lymph nodes are identified. There is no f ree intraperitoneal gas or evidence of bowel obstruction. IMPRESSION: 1. No CT correlate for the patient's symptoms. Reviewed, dictated and finalized at location A.
--- NOTE | ~2019-07-28 | XR_ITS ---
EXAMINATION: XR chest 1V portable INDICATION: Night sweats and fever TECHNIQUE: Portable AP chest at 2055 hours COMPARISON: 03/20/2019 FINDINGS: The lungs are free of acute opacities. There is no pleural effusion or pneumothorax. The ca rdiomediastinal silhouette is normal. The visualized bones and soft tissues are unremarkable. IMPRESSION: 1. No acute cardiopulmonary abnormality. Reviewed, dictated and finalized at location A.
[2019-07-28 18:41] VITALS: BP 143/96; PULSE 110; RESP 16; TEMP 37.2; O2SAT 99
[2019-07-28 19:12] LABS: Basophils Percent Auto 0.5 % (0.2-1.2); Eosinophils Absolute Auto 0.1 K/mm3 (0-0.3); Eosinophils Percent Auto 0.8 % (0-4.4); Hemoglobin 16.2 g/dL (14.0-18.0); Immature Granulocyte Absolute 0.02 K/mm3 (0.00-0.031); Immature Granulocyte Percent A 0.3 % (0-0.5); Lymphocytes Absolute Auto 2.11 K/mm3 (0.9-3.2); Lymphocytes Percent Auto 33.8 % (18.3-44.2); Mean Corpuscular HGB Conc 34.5 g/dl (32-36); Mean Corpuscular Hemoglobin 31.4 pg (26-34); Mean Corpuscular Volume 91.1 fl (80-100); Mean Platelet Volume 9.9 fl (7.4-10.4); Monocytes Absolute Auto 0.7 K/mm3 (0.1-0.6); Monocytes Percent Auto 10.4 % (2.6-8.5); Neutrophils Absolute Auto 3.4 K/mm3 (1.3-6.7); Neutrophils Percent Auto 54.2 % (45.5-73.1); Platelet Count Result 266 k/mm3 (150-375); Red Blood Count 5.16 M/mm3 (4.6-6.20); Red Cell Distribution Width 13.5 % (11.5-14.5); White Blood Count 6.3 K/mm3 (4.5-10.0)
[2019-07-28 19:25] LABS: Blood Urea Nitrogen 15 mg/dL (9-20); Calcium 9.6 mg/dL (8.4-10.2); Carbon Dioxide 27 mmol/L (22-30); Chloride 101 mmol/L (98-107); Estimated CRCL calculation 91 ml/min; Estimated Glomerular Filt Rate > 60; Glucose 99 mg/dL (75-110); Potassium 3.4 mmol/L (3.4-5.0); Sodium 138 mmol/L (137-145)
[2019-07-28 19:58] LABS: Add Urine Microscopic? YES; Appearance Urine Clear (Clear); Bilirubin Urine Negative (Negative); Blood Urine Negative (Negative); Color Urine Yellow (Yellow); Glucose Urine UA Negative (Negative); Ketones Urine Trace mg/dL (Negative); Leukocyte Esterase Ur Trace LEU/UL (Negative); Mucus Urine Few /lpf; Nitrate Urine Negative (Negative); Protein Urine 1+ mg/dL (Negative); RBC Urine 0-2 /hpf (0-2); WBC Urine 0-3 /hpf
--- NOTE | 2019-07-28 20:03 | ED.GENADULT ---
HPI - General Adult General Chief complaint: Back Pain/Injury Stated complaint: R FLANK PAIN, FEVER 100* Time Seen by Provider: 07/28/19 19:08 History of Present Illness HPI narrative: Patient is a 39-year-old male who presents ER with multiple issues. First complaint is right-sided discomfort in the abdomen but the right upper quadrant and lateral abdomen area that began in the last 24 hours. It is an ache. It has no radiation. Is associate with nausea but no vomiting. No urinary frequency or urgency or hematuria. He is without diarrhea. Has found no alleviating factors. Unsure if it is associated with eating. Patient also reports that he is been having night sweats for the last 4 days and developed fever over the last couple days. No chills or shaking. No known sick contacts. Related Data Home Medications Medication Instructions Recorded Confirmed omeprazole 40 mg capsule,delayed 40 mg PO DAILY 03/28/19 04/11/19 release Allergies Allergy/AdvReac Type Severity Reaction Status Date / Time Penicillins Allergy Unknown Rash Verified 04/18/19 14:35 Review of Systems Review of Systems: All systems reviewed & are unremarkable except as noted in HPI and below Constitutional: Constitutional: Denies chills, Reports fever(s) and Denies weakness ENT: Denies nasal congestion and Denies sore throat Cardiovascular: Cardiovascular: Denies chest pain and Denies radiating jaw, neck or arm pain Respiratory: Respiratory: Denies cough, Denies dyspnea and Denies wheezing Gastrointestinal: Gastrointestinal: Reports abdominal pain, Denies diarrhea, Reports nausea and Denies vomiting Genitourinary: Genitourinary: Denies hematuria, Denies dysuria and Denies urinary frequency [facility] Past Medical History Medical History (Updated 07/28/19 @ 22:58 by Edi Restrepo MD) Eczema GERD (gastroesophageal reflux disease) History of angina Hypertension Sleep apnea Tobacco dependence Tremor of both hands Surgical History Surgical History (Updated 07/28/19 @ 20:05 by Edi Restrepo MD) H/O adenoidectomy Hx of tonsillectomy Social History Social History (Updated 04/18/19 @ 14:37 by Eva Devries) Smoking status: Current every day smoker Tobacco type: cigarettes Second hand tobacco smoke exposure: No Smoking end date: 03/13/15 Alcohol intake: former Drinks per week: 14 Substance use: current Substance use type: marijuana Gender identity (if verbalized by the patient): Male Spiritual care concerns: No Agree to blood products: Yes Exam Narrative: Exam Narrative: GENERAL: Well-appearing, well-nourished, and in no acute distress. HEAD: Normocephalic, atraumatic. EYES: PERRL and EOMI. ENT: Mucous membranes moist. CHEST: Clear to auscultation. No respiratory distress. HEART: Tachycardic and regular. Normal peripheral pulses. ABDOMEN: Soft, moderate tenderness right upper quadrant without guarding, nondistended, normal active bowel sounds. Back: No midline tenderness thoracic or lumbar spine. No paraspinal tenderness or CVA tenderness. EXTREMITIES: Normal range of motion. No edema. SKIN: Warm, dry, no rash. NEURO: Alert and oriented x3. Course Course Emergency Course: Patient informed of results. No etiology for patient's symptoms. We will add on a COVID screen given his night sweats and fevers. Patient should follow-up with his PCP regarding results and he is verbalized understanding of this. Vital Signs Vital signs: Vital Signs Temperature 99 F 07/28/19 18:41 Pulse Rate 110 H 07/28/19 18:41 Respiratory Rate 16 07/28/19 18:41 Blood Pressure 143/96 H 07/28/19 18:41 Pulse Oximetry 99 07/28/19 18:41 Temperature 99 F 07/28/19 18:41 Pulse Rate 110 H 07/28/19 18:41 Respiratory Rate 16 07/28/19 18:41 Blood Pressure 143/96 H 07/28/19 18:41 Pulse Oximetry 99 07/28/19 18:41 Medical Decision Making Vital Signs Vital Signs: Vital Signs Temperature 99
[2019-07-28 20:53] LABS: Alanine Aminotransferase 40 U/L (4-50); Albumin Level 4.7 g/dL (3.5-5.1); Alkaline Phosphatase 67 U/L (38-126); Aspartate Amino Transferase 36 U/L (17-59); Bilirubin,Total 0.8 mg/dL (0.2-1.3); Lipase 36 U/L (23-300)
[2019-07-28 23:01] VITALS: BP 132/70; PULSE 80; RESP 20; O2SAT 99
== END 2019-07-28 23:01 | disposition home or self-care (01) ==
PROVIDERS: Emergency Medicine; Emergency Provider Emergency Medicine; PCP Family Medicine
DX: Z20.818 Contact with and (suspected) exposure to other bacterial communicable diseases (principal); R50.9 Fever, unspecified; R10.9 Unspecified abdominal pain
CPT/HCPCS: 36415; 71045; 74177; 80048; 80076; 81001; 83690; 85025; 87635; 96365; 99284; C9803; J0131; Q9967; U0003

== ENCOUNTER 2019-11-12 09:13 | Emergency (ER) | payer BC, SELFPAY ==
--- NOTE | ~2019-11-12 | XR_ITS ---
EXAMINATION: XR chest 2V DATE: 11/12/2019 09:36 INDICATION: Chest pain TECHNIQUE: PA and lateral views of the chest are obtained. COMPARISON: 07/28/2019 FINDINGS: The lungs are free of acute opacities. There is no pleural effusion or pneumothorax. The ca rdiomediastinal silhouette is normal. The visualized bones and soft tissues are unremarkable. IMPRESSION: 1. No acute cardiopulmonary abnormality. Reviewed, dictated and finalized at location A.
--- NOTE | 2019-11-12 09:15 | ECG_ITS ---
Measurements Intervals [place] Rate: 138 P: 47 IA: 112 QRS: 3 QRSD: 94 T: 59 QT: 316 QTc: 480 Interpretive Statements SINUS TACHYCARDIA DELAYED PRECORDIAL R/S TRANSITION ABNORMAL ECG Electronically Signed On 11-12-2019 9:23:57 CDT by Humble Jackson D.O.
[2019-11-12 09:16] VITALS: BP 145/96; PULSE 137; RESP 19; TEMP 36.6; O2SAT 100
[2019-11-12 09:20] VITALS: PULSE 136
[2019-11-12 09:26] LABS: Basophils Absolute Auto 0.1 K/mm3 (0.0-0.1); Basophils Percent Auto 0.9 % (0.2-1.2); Eosinophils Absolute Auto 0.1 K/mm3 (0-0.3); Eosinophils Percent Auto 0.6 % (0-4.4); Hemoglobin 16.2 g/dL (14.0-18.0); Immature Granulocyte Absolute 0.02 K/mm3 (0.00-0.031); Immature Granulocyte Percent A 0.2 % (0-0.5); Lymphocytes Absolute Auto 3.82 K/mm3 (0.9-3.2); Lymphocytes Percent Auto 40.9 % (18.3-44.2); Mean Corpuscular Hemoglobin 31.9 pg (26-34); Mean Corpuscular Volume 88.6 fl (80-100); Mean Platelet Volume 9.8 fl (7.4-10.4); Monocytes Absolute Auto 0.6 K/mm3 (0.1-0.6); Monocytes Percent Auto 6.5 % (2.6-8.5); Neutrophils Absolute Auto 4.8 K/mm3 (1.3-6.7); Neutrophils Percent Auto 50.9 % (45.5-73.1); Platelet Count Result 208 k/mm3 (150-375); Red Blood Count 5.08 M/mm3 (4.6-6.20); Red Cell Distribution Width 12.2 % (11.5-14.5); White Blood Count 9.3 K/mm3 (4.5-10.0)
[2019-11-12] MEDS: SODIUM CHLORIDE 0.9% IV 1,000 ML 999 ML IV CONT (09:26)
[2019-11-12 09:36] LABS: INR 0.9; Prothrombin Time 11.8 Seconds (11.1-14.7)
[2019-11-12 09:37] LABS: Partial Thromboplastin Time 25.7 SECONDS (22.3-36.8)
[2019-11-12 09:39] LABS: Anion Gap 19 mmol/L (8-16); Blood Urea Nitrogen 12 mg/dL (9-20); Calcium 9.1 mg/dL (8.4-10.2); Carbon Dioxide 23 mmol/L (22-30); Chloride 94 mmol/L (98-107); Estimated CRCL calculation 101 ml/min; Estimated Glomerular Filt Rate > 60; Glucose 91 mg/dL (75-110); Potassium 3.2 mmol/L (3.4-5.0); Sodium 136 mmol/L (137-145)
[2019-11-12 09:49] LABS: Troponin I < 0.012 ng/mL (0.000-0.034)
[2019-11-12 09:59] VITALS: BP 126/86; PULSE 106; RESP 23; O2SAT 96
[2019-11-12 11:49] VITALS: BP 127/76; PULSE 106; RESP 16; O2SAT 96
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
[2019-11-12 12:48] VITALS: BP 134/90; PULSE 118; RESP 23; O2SAT 99
[2019-11-12 12:48] LABS: Troponin I < 0.012 ng/mL (0.000-0.034)
[2019-11-12 13:23] VITALS: BP 139/78; PULSE 119; RESP 19; O2SAT 99
== END 2019-11-12 13:24 | disposition home or self-care (01) ==
PROVIDERS: Emergency Medicine Emergency Medical Services; Emergency Provider Emergency Medicine; PCP Family Medicine
DX: F10.10 Alcohol abuse, uncomplicated (principal); F17.210 Nicotine dependence, cigarettes, uncomplicated; K21.9 Gastro-esophageal reflux disease without esophagitis; I10 Essential (primary) hypertension; G47.30 Sleep apnea, unspecified; F43.10 Post-traumatic stress disorder, unspecified; R00.0 Tachycardia, unspecified; R94.31 Abnormal electrocardiogram [ECG] [EKG]
CPT/HCPCS: 36415; 71046; 80048; 84443; 84484; 85025; 85610; 85730; 93005; 96361; 96365; 96375; 99284; J2060; J3411; J3475; J7030; J7120